=== PATIENT | male | born 1960 | race African-American/Black ===

== ENCOUNTER 2017-02-03 17:48 | Inpatient (IN) ==
[2017-02-03 20:04] LABS: Basophils # 0.1 10*3/uL (0.0-0.2); Basophils % 1.2 % (0.0-0.8); Eosinophils # 0.1 10*3/uL (0.0-0.87); Eosinophils % 0.7 % (0.00-10.9); Hemoglobin 11.5 GM/DL (14.0-18.0); Immature Granulocytes % 0.6 %; Immature Granulocytes Absolute 0.06 #; Lymphocytes % 21.7 % (21.2-54.2); Mean Corpuscular HGB Conc 32.9 GM/DL (32-36); Mean Corpuscular Hemoglobin 28 PG (27-34); Mean Corpuscular Volume 85.6 FL (87-102); Mean Platelet Volume 10.3 FL (9.6-12.0); Monocytes # 0.5 10*3/uL (0.11-0.8); Monocytes % 5.3 % (1.7-12.7); Neutrophils # 6.6 10*3/uL (1.4-7.4); Neutrophils % 70.5 % (38.7-73.9); Platelet Count 278 T/CUMM (130-400); Red Blood Count 4.09 MC/CUMM (3.8-5.5); Red Cell Distribution Width 17.7 % (9.3-17.3); White Blood Count 9.4 T/CUMM (4-12)
[2017-02-03 20:15] LABS: INR 1.3; PT Patient Result 13.2 SECS
[2017-02-03] MEDS ORDERED: hydrALAZINE 20 MG/1 ML VIAL IV STA ×2 (20:15→22:02)
[2017-02-03 20:43] LABS: Albumin 3.4 G/DL (3.4-5.0); Bilirubin,Total 1.2 MG/DL (0.2-1.0); Calcium 8.6 MG/DL (8.5-10.1); Magnesium 1.8 MG/DL (1.8-2.4); Potassium 3.9 MMOL/L (3.5-5.1); Total Protein 7.7 G/DL (6.4-8.3)
[2017-02-03 20:45] LABS: Troponin I Only 0.113 NG/ML (0.00-0.045)
[2017-02-03] MEDS ORDERED: hydrALAZINE 20 MG/1 ML VIAL ONE ×2 (20:56→22:06)
[2017-02-03] MEDS ORDERED: FUROSEMIDE 40 MG/4 ML VIAL IV STA (21:18)
[2017-02-03] MEDS ORDERED: FUROSEMIDE 40 MG/4 ML VIAL ONE (21:21)
[2017-02-03] MEDS ORDERED: ONDANSETRON 4 MG/2 ML VIAL IV STA (22:00)
[2017-02-03] MEDS ORDERED: ONDANSETRON 4 MG/2 ML VIAL ONE (22:00)
[2017-02-03] MEDS ORDERED: ALBUTEROL 2.5 MG/3 ML NEB RESP TX PRN (22:07)
[2017-02-03] MEDS ORDERED: ONDANSETRON 4 MG/2 ML VIAL IV PRN (22:07)
[2017-02-03] MEDS ORDERED: MAGNESIUM SULF RIDER 2 GM in PREMIX 1 EACH IV PRN (22:11)
[2017-02-03] MEDS ORDERED: MAGNESIUM SULF RIDER 4 GM in PREMIX 1 EACH IV PRN (22:11)
[2017-02-03] MEDS: PANTOPRAZOLE 40 MG VIAL IV SCH (23:06)
[2017-02-03] MEDS: niCARdipine INJ 25 MG in SODIUM CHLORIDE 0.9% 240 ML IV SCH (23:34)
[2017-02-03] MEDS: MORPHINE 2 MG/1 ML SYRINGE IV PRN (23:35)
[2017-02-03] MEDS: ENOXAPARIN 40 MG/0.4 ML SYRINGE SUBCUT SCH (23:37)
[2017-02-03] MEDS: NITROGLYCERIN 2% OINT 1 INCH/GM PACK TOP SCH (23:37)
[2017-02-04 03:15] LABS: Basophils # 0.1 10*3/uL (0.0-0.2); Basophils % 1.5 % (0.0-0.8); Eosinophils % 0.1 % (0.00-10.9); Hematocrit 33.1 VOL% (42.0-52.0); Hemoglobin 10.8 GM/DL (14.0-18.0); Immature Granulocytes % 0.3 %; Immature Granulocytes Absolute 0.03 #; Lymphocytes # 1.9 10*3/uL (1.4-4.0); Lymphocytes % 22.1 % (21.2-54.2); Mean Corpuscular HGB Conc 32.6 GM/DL (32-36); Mean Corpuscular Hemoglobin 28 PG (27-34); Mean Corpuscular Volume 84.7 FL (87-102); Mean Platelet Volume 10.4 FL (9.6-12.0); Monocytes # 0.7 10*3/uL (0.11-0.8); Neutrophils # 5.9 10*3/uL (1.4-7.4); Platelet Count 267 T/CUMM (130-400); Red Blood Count 3.91 MC/CUMM (3.8-5.5); Red Cell Distribution Width 17.8 % (9.3-17.3); White Blood Count 8.6 T/CUMM (4-12)
[2017-02-04 04:52] LABS: Albumin 3.2 G/DL (3.4-5.0); Bilirubin,Total 1.4 MG/DL (0.2-1.0); Calcium 8.8 MG/DL (8.5-10.1); Osmolality,Calculated 274.7 MOS/KG (273-304); Potassium 3.4 MMOL/L (3.5-5.1); Risk Ratio 2.52; Total Protein 7.1 G/DL (6.4-8.3); VLDL CHOLESTEROL 7.8 MG/DL
[2017-02-04] MEDS: niCARdipine INJ 25 MG in SODIUM CHLORIDE 0.9% 240 ML IV SCH (05:47)
[2017-02-04] MEDS: NITROGLYCERIN 2% OINT 1 INCH/GM PACK TOP SCH ×4 (05:48→23:22)
[2017-02-04] MEDS: MORPHINE 2 MG/1 ML SYRINGE IV PRN (05:48)
[2017-02-04] MEDS: SUCRALFATE 1 GM/10 ML UDCUP PO SCH ×4 (08:13→21:06)
[2017-02-04] MEDS: LISINOPRIL 20 MG TABLET PO SCH ×2 (08:13→21:06)
[2017-02-04] MEDS: GABAPENTIN 600 MG TABLET PO SCH ×2 (08:13→21:06)
[2017-02-04] MEDS: ASPIRIN CHEW 81 MG TABLET PO SCH (08:13)
[2017-02-04] MEDS: CARVEDILOL 25 MG TABLET PO SCH ×2 (08:14→21:09)
[2017-02-04] MEDS: FUROSEMIDE 40 MG/4 ML VIAL IV SCH ×2 (08:15→17:01)
[2017-02-04] MEDS: COLLAGENASE OINT 30 GM TUBE TOP SCH (16:45)
[2017-02-04 17:56] LABS: Apearance,Urine CLEAR (Clear); Bilirubin,Urine Negative (Negative); Blood, Urine Negative (Negative); Glucose,Urine (UA) Negative (Negative); Ketones,Urine Negative (Negative); Mucus,Urine Occasional /LPF (Occasional); Nitrite,Urine Negative (Negative); Protein,Urine Negative; RBC,Urine <1 /HPF (0-4); Urine Color Yellow (Yellow); Urine Specific Gravity 1.011 (1.001-1.035); WBC,Urine 2 /HPF (0-6)
[2017-02-04] MEDS: ATORVASTATIN 80 MG TABLET PO SCH (21:06)
[2017-02-04] MEDS: PANTOPRAZOLE 40 MG VIAL IV SCH (23:21)
[2017-02-04] MEDS: ENOXAPARIN 40 MG/0.4 ML SYRINGE SUBCUT SCH (23:21)
[2017-02-05 04:42] LABS: Basophils # 0.1 10*3/uL (0.0-0.2); Basophils % 1.7 % (0.0-0.8); Eosinophils # 0.5 10*3/uL (0.0-0.87); Eosinophils % 6.5 % (0.00-10.9); Hematocrit 30.7 VOL% (42.0-52.0); Immature Granulocytes % 0.3 %; Immature Granulocytes Absolute 0.02 #; Lymphocytes # 2.2 10*3/uL (1.4-4.0); Lymphocytes % 31.5 % (21.2-54.2); Mean Corpuscular HGB Conc 32.6 GM/DL (32-36); Mean Corpuscular Hemoglobin 28 PG (27-34); Mean Corpuscular Volume 85.3 FL (87-102); Monocytes # 0.5 10*3/uL (0.11-0.8); Monocytes % 6.9 % (1.7-12.7); Neutrophils # 3.8 10*3/uL (1.4-7.4); Neutrophils % 53.1 % (38.7-73.9); Platelet Count 262 T/CUMM (130-400); Red Cell Distribution Width 17.5 % (9.3-17.3); White Blood Count 7.1 T/CUMM (4-12)
[2017-02-05 05:06] LABS: Calcium 8.3 MG/DL (8.5-10.1); Potassium 3.7 MMOL/L (3.5-5.1)
[2017-02-05] MEDS: NITROGLYCERIN 2% OINT 1 INCH/GM PACK TOP SCH ×3 (06:14→17:52)
[2017-02-05] MEDS: FUROSEMIDE 40 MG/4 ML VIAL IV SCH ×2 (08:56→17:07)
[2017-02-05] MEDS: SUCRALFATE 1 GM/10 ML UDCUP PO SCH ×4 (08:56→21:21)
[2017-02-05] MEDS: GABAPENTIN 600 MG TABLET PO SCH ×2 (08:56→21:22)
[2017-02-05] MEDS: LISINOPRIL 20 MG TABLET PO SCH ×2 (08:56→21:21)
[2017-02-05] MEDS: CARVEDILOL 25 MG TABLET PO SCH ×2 (08:57→21:21)
[2017-02-05] MEDS: ASPIRIN CHEW 81 MG TABLET PO SCH (08:57)
[2017-02-05] MEDS: COLLAGENASE OINT 30 GM TUBE TOP SCH (11:59)
[2017-02-05] MEDS: ATORVASTATIN 80 MG TABLET PO SCH (21:22)
[2017-02-05] MEDS: PANTOPRAZOLE 40 MG VIAL IV SCH (23:53)
[2017-02-05] MEDS: ENOXAPARIN 40 MG/0.4 ML SYRINGE SUBCUT SCH (23:53)
[2017-02-06] MEDS: NITROGLYCERIN 2% OINT 1 INCH/GM PACK TOP SCH ×2 (02:22→05:20)
[2017-02-06 06:39] LABS: Basophils # 0.1 10*3/uL (0.0-0.2); Basophils % 1.6 % (0.0-0.8); Eosinophils # 0.8 10*3/uL (0.0-0.87); Eosinophils % 10.1 % (0.00-10.9); Hematocrit 31.5 VOL% (42.0-52.0); Hemoglobin 10.3 GM/DL (14.0-18.0); Immature Granulocytes % 0.2 %; Immature Granulocytes Absolute 0.02 #; Lymphocytes # 2.3 10*3/uL (1.4-4.0); Lymphocytes % 28.5 % (21.2-54.2); Mean Corpuscular HGB Conc 32.7 GM/DL (32-36); Mean Corpuscular Hemoglobin 29 PG (27-34); Mean Platelet Volume 11.7 FL (9.6-12.0); Monocytes # 0.8 10*3/uL (0.11-0.8); Monocytes % 9.3 % (1.7-12.7); Neutrophils # 4.1 10*3/uL (1.4-7.4); Neutrophils % 50.3 % (38.7-73.9); Platelet Count 256 T/CUMM (130-400); Red Blood Count 3.62 MC/CUMM (3.8-5.5); Red Cell Distribution Width 17.6 % (9.3-17.3); White Blood Count 8.1 T/CUMM (4-12)
[2017-02-06 07:21] LABS: Calcium 8.3 MG/DL (8.5-10.1); Osmolality,Calculated 279.7 MOS/KG (273-304); Potassium 3.7 MMOL/L (3.5-5.1)
[2017-02-06] MEDS: FUROSEMIDE 40 MG TABLET PO SCH (08:54)
[2017-02-06] MEDS: GABAPENTIN 600 MG TABLET PO SCH ×2 (08:54→22:49)
[2017-02-06] MEDS: LISINOPRIL 20 MG TABLET PO SCH ×2 (08:54→22:49)
[2017-02-06] MEDS: CARVEDILOL 25 MG TABLET PO SCH ×2 (08:55→22:49)
[2017-02-06] MEDS: ASPIRIN CHEW 81 MG TABLET PO SCH (08:55)
[2017-02-06] MEDS: SUCRALFATE 1 GM/10 ML UDCUP PO SCH ×4 (08:55→22:49)
[2017-02-06] MEDS: ACETAMINOPHEN 325 MG TABLET PO PRN (10:33)
[2017-02-06] MEDS: COLLAGENASE OINT 30 GM TUBE TOP SCH (13:35)
[2017-02-06] MEDS ORDERED: LEVOFLOXACIN INJ 750 MG in PREMIX 1 EACH IV SCH (17:30)
[2017-02-06] MEDS ORDERED: BISACODYL 10 MG SUPP RECTAL ONE (22:46)
[2017-02-06] MEDS: ATORVASTATIN 80 MG TABLET PO SCH (22:49)
[2017-02-06] MEDS: PANTOPRAZOLE 40 MG VIAL IV SCH (22:55)
[2017-02-06] MEDS: ENOXAPARIN 40 MG/0.4 ML SYRINGE SUBCUT SCH (22:55)
[2017-02-07] MEDS: ACETAMINOPHEN 325 MG TABLET PO PRN (07:26)
[2017-02-07] MEDS: CARVEDILOL 25 MG TABLET PO SCH (08:33)
[2017-02-07] MEDS: FUROSEMIDE 40 MG TABLET PO SCH (08:33)
[2017-02-07] MEDS: LISINOPRIL 20 MG TABLET PO SCH (08:33)
[2017-02-07] MEDS: SUCRALFATE 1 GM/10 ML UDCUP PO SCH ×3 (08:33→16:38)
[2017-02-07] MEDS: GABAPENTIN 600 MG TABLET PO SCH (08:33)
[2017-02-07] MEDS: ASPIRIN CHEW 81 MG TABLET PO SCH (08:33)
[2017-02-07] MEDS: COLLAGENASE OINT 30 GM TUBE TOP SCH (16:10)
[2017-02-07 17:16] VITALS: BP 143/83
== END 2017-02-07 17:50 | disposition home or self-care (01) | DRG 280 ==
LOC: N.ED 17:48 → N.EDINP 22:07 → N.ICU 22:40 → N.5E 02-05 13:07
PROVIDERS: ADMIT Internal Medicine; ATTEND Internal Medicine

== ENCOUNTER 2017-02-22 02:02 | Inpatient (IN) ==
[2017-02-22] MEDS ORDERED: hydrALAZINE 20 MG/1 ML VIAL IV STA (02:52)
[2017-02-22] MEDS ORDERED: LABETALOL 20 MG/4 ML SYRINGE IV STA (02:53)
[2017-02-22] MEDS ORDERED: ONDANSETRON 4 MG/2 ML VIAL IV STA (02:53)
[2017-02-22] MEDS ORDERED: ASPIRIN 325 MG TABLET ONE (02:59)
[2017-02-22] MEDS ORDERED: hydrALAZINE 20 MG/1 ML VIAL ONE ×2 (02:59→07:42)
[2017-02-22] MEDS ORDERED: LABETALOL 20 MG/4 ML SYRINGE IV ONE ×2 (02:59→05:35)
[2017-02-22] MEDS ORDERED: ONDANSETRON 4 MG/2 ML VIAL ONE ×2 (02:59→07:51)
[2017-02-22 03:21] LABS: Basophils # 0.1 10*3/uL (0.0-0.2); Basophils % 1.4 % (0.0-0.8); Eosinophils # 0.1 10*3/uL (0.0-0.87); Eosinophils % 1.4 % (0.00-10.9); Hematocrit 43.5 VOL% (42.0-52.0); Hemoglobin 14.4 GM/DL (14.0-18.0); Immature Granulocytes % 0.1 %; Immature Granulocytes Absolute 0.01 #; Lymphocytes % 20.6 % (21.2-54.2); Mean Corpuscular HGB Conc 33.1 GM/DL (32-36); Mean Corpuscular Hemoglobin 28 PG (27-34); Mean Corpuscular Volume 84.3 FL (87-102); Mean Platelet Volume 10.3 FL (9.6-12.0); Monocytes # 0.6 10*3/uL (0.11-0.8); Monocytes % 6.1 % (1.7-12.7); Neutrophils # 6.7 10*3/uL (1.4-7.4); Neutrophils % 70.4 % (38.7-73.9); Platelet Count 309 T/CUMM (130-400); Red Blood Count 5.16 MC/CUMM (3.8-5.5); Red Cell Distribution Width 16.4 % (9.3-17.3); White Blood Count 9.5 T/CUMM (4-12)
[2017-02-22 03:40] LABS: Albumin 3.7 G/DL (3.4-5.0); Calcium 9.3 MG/DL (8.5-10.1); Osmolality,Calculated 266.5 MOS/KG (273-304); Potassium 3.8 MMOL/L (3.5-5.1); Total Protein 9.2 G/DL (6.4-8.3)
[2017-02-22] MEDS ORDERED: FUROSEMIDE 40 MG/4 ML VIAL IV STA (04:38)
[2017-02-22] MEDS ORDERED: FUROSEMIDE 40 MG/4 ML VIAL ONE (05:01)
[2017-02-22] MEDS ORDERED: LABETALOL 100 MG/20 ML VIAL IV STA (05:25)
[2017-02-22] MEDS ORDERED: diphenhydrAMINE 50 MG/1 ML VIAL IV STA (05:43)
[2017-02-22] MEDS ORDERED: METOCLOPRAMIDE 10 MG/2 ML VIAL IV STA (05:43)
[2017-02-22] MEDS ORDERED: ONDANSETRON 4 MG/2 ML VIAL IV PRN (06:08)
[2017-02-22] MEDS ORDERED: diphenhydrAMINE 50 MG/1 ML VIAL ONE (06:09)
[2017-02-22] MEDS ORDERED: METOCLOPRAMIDE 10 MG/2 ML VIAL ONE (06:09)
[2017-02-22] MEDS ORDERED: hydrALAZINE 20 MG/1 ML VIAL IV PRN (06:34)
[2017-02-22] MEDS ORDERED: HEPARIN 5,000 UNIT/1 ML VIAL SUBCUT SCH (07:00)
[2017-02-22] MEDS: SODIUM CHLORIDE 0.9% 1,000 ML IV SCH ×2 (07:49→22:25)
[2017-02-22] MEDS ORDERED: PANTOPRAZOLE 40 MG VIAL IV ONE (08:42)
[2017-02-22] MEDS: PANTOPRAZOLE 40 MG VIAL IV SCH ×2 (08:49→22:17)
[2017-02-22] MEDS: ASPIRIN EC 81 MG TABLET PO SCH (08:50)
[2017-02-22] MEDS: SUCRALFATE 1 GM/10 ML UDCUP PO SCH ×4 (08:50→22:17)
[2017-02-22] MEDS: CARVEDILOL 25 MG TABLET PO SCH ×2 (09:09→22:16)
[2017-02-22 09:19] LABS: Barbiturates Screen,Urine Negative (Negative); Benzodiazepines Screen,Urine Negative (Negative); Cannabinoid Screen,Urine Negative (Negative); Opiate Screen,Urine Negative (Negative); Phencyclidine Screen,Urine Negative (Negative)
[2017-02-23] MEDS: ASPIRIN EC 81 MG TABLET PO SCH (09:30)
[2017-02-23] MEDS: PANTOPRAZOLE 40 MG VIAL IV SCH ×2 (09:30→21:37)
[2017-02-23] MEDS: CARVEDILOL 25 MG TABLET PO SCH ×2 (09:30→22:20)
[2017-02-23] MEDS: SUCRALFATE 1 GM/10 ML UDCUP PO SCH ×4 (09:30→21:36)
[2017-02-23] MEDS: SODIUM CHLORIDE 0.9% 1,000 ML IV SCH (10:41)
[2017-02-23] MEDS: ATORVASTATIN 80 MG TABLET PO SCH (21:36)
[2017-02-23] MEDS: LISINOPRIL 20 MG TABLET PO SCH (21:36)
[2017-02-24] MEDS: SODIUM CHLORIDE 0.9% 1,000 ML IV SCH ×2 (01:10→14:46)
[2017-02-24 09:27] LABS: Calcium 8.3 MG/DL (8.5-10.1); Potassium 3.8 MMOL/L (3.5-5.1)
[2017-02-24] MEDS: PANTOPRAZOLE 40 MG VIAL IV SCH ×2 (10:16→20:39)
[2017-02-24] MEDS: CARVEDILOL 25 MG TABLET PO SCH ×3 (10:31→20:39)
[2017-02-24] MEDS: ASPIRIN EC 81 MG TABLET PO SCH ×2 (10:31→14:43)
[2017-02-24] MEDS: SUCRALFATE 1 GM/10 ML UDCUP PO SCH ×5 (10:31→20:39)
[2017-02-24] MEDS: LISINOPRIL 20 MG TABLET PO SCH ×3 (10:31→20:39)
[2017-02-24] MEDS ORDERED: LIDOCAINE 2% 5 ML VIAL ONE (12:35)
[2017-02-24] MEDS ORDERED: PROPOFOL 200 MG/20 ML VIAL IV ONE (12:35)
[2017-02-24] MEDS: FLUCONAZOLE 100 MG TABLET PO SCH (14:43)
[2017-02-24] MEDS: ATORVASTATIN 80 MG TABLET PO SCH (20:39)
[2017-02-25] MEDS ORDERED: ceFAZolin 2,000 MG in PREMIX 1 EACH IV ONE ×2 (07:00→13:45)
[2017-02-25] MEDS: CARVEDILOL 25 MG TABLET PO SCH ×2 (09:32→21:33)
[2017-02-25] MEDS: LISINOPRIL 20 MG TABLET PO SCH ×2 (09:32→21:33)
[2017-02-25] MEDS: PANTOPRAZOLE 40 MG VIAL IV SCH ×2 (09:33→21:34)
[2017-02-25] MEDS: SODIUM CHLORIDE 0.9% 1,000 ML IV SCH ×2 (10:27→15:45)
[2017-02-25] MEDS: SUCRALFATE 1 GM/10 ML UDCUP PO SCH ×4 (10:27→21:33)
[2017-02-25] MEDS: FLUCONAZOLE 100 MG TABLET PO SCH ×2 (10:27→15:40)
[2017-02-25] MEDS: ASPIRIN EC 81 MG TABLET PO SCH (10:27)
[2017-02-25] MEDS: ATORVASTATIN 80 MG TABLET PO SCH (21:33)
[2017-02-26] MEDS: SODIUM CHLORIDE 0.9% 1,000 ML IV SCH ×2 (06:45→18:06)
[2017-02-26] MEDS: LISINOPRIL 20 MG TABLET PO SCH ×2 (09:04→20:30)
[2017-02-26] MEDS: CARVEDILOL 25 MG TABLET PO SCH ×2 (09:04→20:30)
[2017-02-26] MEDS: FLUCONAZOLE 100 MG TABLET PO SCH (09:04)
[2017-02-26] MEDS: PANTOPRAZOLE 40 MG VIAL IV SCH ×2 (09:05→20:30)
[2017-02-26] MEDS: ASPIRIN EC 81 MG TABLET PO SCH (09:05)
[2017-02-26] MEDS: SUCRALFATE 1 GM/10 ML UDCUP PO SCH ×4 (09:05→20:30)
[2017-02-26] MEDS ORDERED: ROPIVACAINE 0.5% 30 ML VIAL ONE (16:05)
[2017-02-26] MEDS ORDERED: ACETAMINOPHEN 325 MG TABLET PO PRN (17:01)
[2017-02-26] MEDS ORDERED: HYDROmorphone 2 MG/1 ML VIAL IV PRN (17:01)
[2017-02-26] MEDS ORDERED: CHLORHEXIDINE 4% SOLN 118 ML BOTTLE TOP ONE (17:04)
[2017-02-26] MEDS ORDERED: fentaNYL 100 MCG/2 ML VIAL ONE (17:19)
[2017-02-26] MEDS ORDERED: MIDAZOLAM 2 MG/2 ML VIAL ONE (17:19)
[2017-02-26] MEDS: ATORVASTATIN 80 MG TABLET PO SCH (20:30)
[2017-02-27] MEDS: ceFAZolin 2,000 MG in PREMIX 1 EACH IV SCH ×2 (01:01→09:14)
[2017-02-27 05:12] LABS: Basophils # 0.1 10*3/uL (0.0-0.2); Basophils % 1.8 % (0.0-0.8); Eosinophils # 0.4 10*3/uL (0.0-0.87); Eosinophils % 4.9 % (0.00-10.9); Hematocrit 35.1 VOL% (42.0-52.0); Hemoglobin 11.7 GM/DL (14.0-18.0); Immature Granulocytes % 0.4 %; Immature Granulocytes Absolute 0.03 #; Lymphocytes # 2.5 10*3/uL (1.4-4.0); Lymphocytes % 32.7 % (21.2-54.2); Mean Corpuscular HGB Conc 33.3 GM/DL (32-36); Mean Corpuscular Hemoglobin 28 PG (27-34); Mean Corpuscular Volume 84.2 FL (87-102); Mean Platelet Volume 10.7 FL (9.6-12.0); Monocytes # 0.7 10*3/uL (0.11-0.8); Monocytes % 9.2 % (1.7-12.7); Neutrophils # 3.9 10*3/uL (1.4-7.4); Platelet Count 272 T/CUMM (130-400); Red Blood Count 4.17 MC/CUMM (3.8-5.5); Red Cell Distribution Width 16.8 % (9.3-17.3); White Blood Count 7.6 T/CUMM (4-12)
[2017-02-27 05:35] LABS: Calcium 8.6 MG/DL (8.5-10.1); Osmolality,Calculated 274.8 MOS/KG (273-304); Potassium 4.1 MMOL/L (3.5-5.1)
[2017-02-27] MEDS: SODIUM CHLORIDE 0.9% 1,000 ML IV SCH (07:56)
[2017-02-27] MEDS: CARVEDILOL 25 MG TABLET PO SCH ×2 (09:15→20:48)
[2017-02-27] MEDS: SUCRALFATE 1 GM/10 ML UDCUP PO SCH ×4 (09:15→20:48)
[2017-02-27] MEDS: LISINOPRIL 20 MG TABLET PO SCH ×2 (09:15→20:48)
[2017-02-27] MEDS: FLUCONAZOLE 100 MG TABLET PO SCH (09:16)
[2017-02-27] MEDS: ASPIRIN EC 81 MG TABLET PO SCH (09:16)
[2017-02-27] MEDS: PANTOPRAZOLE 40 MG VIAL IV SCH ×2 (09:20→20:45)
[2017-02-27] MEDS: SODIUM HYPOCHLORITE 0.25% IRRIG 473 ML BOTTLE TOP SCH (13:01)
[2017-02-27] MEDS: BACITRACIN OINT 0.9 GM PACK TOP SCH (13:01)
[2017-02-27] MEDS: ATORVASTATIN 80 MG TABLET PO SCH (20:48)
[2017-02-28 08:37] VITALS: BP 133/70
[2017-02-28] MEDS: LISINOPRIL 20 MG TABLET PO SCH (09:31)
[2017-02-28] MEDS: FLUCONAZOLE 100 MG TABLET PO SCH (09:31)
[2017-02-28] MEDS: SUCRALFATE 1 GM/10 ML UDCUP PO SCH ×2 (09:31→13:15)
[2017-02-28] MEDS: CARVEDILOL 25 MG TABLET PO SCH (09:31)
[2017-02-28] MEDS: ASPIRIN EC 81 MG TABLET PO SCH (09:31)
[2017-02-28] MEDS: PANTOPRAZOLE 40 MG VIAL IV SCH (09:32)
[2017-02-28] MEDS: BACITRACIN OINT 0.9 GM PACK TOP SCH (13:15)
[2017-02-28] MEDS: SODIUM HYPOCHLORITE 0.25% IRRIG 473 ML BOTTLE TOP SCH (13:15)
== END 2017-02-28 13:53 | disposition home or self-care (01) | DRG 356 ==
LOC: N.ED 02:02 → SUATTDRO 06:08 → N.EDINP 06:08 → N.TELES 15:41
PROVIDERS: ADMIT Internal Medicine; ATTEND Pediatrics